=== PATIENT | male | born 1995 | race Caucasian/White ===

== ENCOUNTER 2017-03-30 21:34 | Inpatient (IN) | payer MEDICARE, MEDICAID ==
[2017-03-30] VITALS: BP 122/62
[~2017-03-30] VITALS: Ht 182.9 cm; Wt 163.5 kg
[~2017-03-30 21:34] MED LIST: CELEXA20 MG PO; CEPACOL SORE T1 EAC7 PO; CLONAZEPAM 0.50.5 M1 PO; IBUPROFEN 200200 M1; IBUPROFEN 600600 M1 PO; NOHOMEMEDICATIONS; NORCO 5-325 TA1 EACH PO; RISPERDAL2 MG PO; TRAZODONE HCL50 MG PO; VISTARIL50 MG PO; ZYPREXA15 MG PO
[2017-03-30 21:36] VITALS: BP 142/100
[2017-03-30] MEDS ORDERED: INVEGA SUS39 MG/0.25 (21:44)
[2017-03-30 21:55] LABS: ABSOLUTE EOSINOPHILS 0.1 thou/uL (0.0-0.7); ABSOLUTE LYMPHOCYTES 2.5 thou/uL (0.8-5.3); ABSOLUTE MONOCYTES 0.4 thou/uL (0.0-1.2); ABSOLUTE NEUTROPHILS 4.4 thou/uL (1.6-8.1); BASOPHILS 0.3 %; EOSINOPHILS 0.8 %; HEMATOCRIT 41.8 % (42.0-52.0); HEMOGLOBIN 13.5 gm/dL (14.0-18.0); LYMPHOCYTES 34.2 %; MCH 27.4 pg (26.0-34.0); MCHC 32.3 g/dL (28.0-37.0); MCV 84.8 fL (80.0-100.0); MONOCYTES 5.7 %; MPV 7.4 fl. (7.2-11.1); NUCLEATED RBCS 0 /100WBC; PLATELET COUNT* 253 thou/uL (150-400); RBC 4.93 mil/uL (4.50-6.00); RDW-CV 13.8 % (10.5-14.5); WBC 7.4 thou/uL (4.0-11.0)
[2017-03-30 22:03] LABS: CALCIUM 9.2 mg/dL (8.5-10.1); POTASSIUM 3.3 mmol/L (3.5-5.1)
[2017-03-30 22:08] LABS: URINE BILIRUBIN NEGATIVE (Negative); URINE BLOOD NEGATIVE (Negative); URINE CLARITY CLEAR; URINE COLOR YELLOW; URINE GLUCOSE-RANDOM NEGATIVE (Negative); URINE KETONES NEGATIVE (Negative); URINE LEUKOCYTES-REFLEX NEGATIVE (Negative); URINE NITRITE-REFLEX NEGATIVE (Negative); URINE PROTEIN NEGATIVE (Negative); URINE UROBILINOGEN 0.2 E.U./dl (0.2-1.0)
[2017-03-30 22:14] LABS: ALBUMIN 4.1 g/dL (3.4-5.0); TOTAL BILIRUBIN 0.3 mg/dL (<0.1-1.0); TOTAL PROTEIN 7.6 g/dL (6.4-8.2)
[2017-03-30 22:15] LABS: AMP/METHAMP Negative (Negative); BARBITURATES Negative (Negative); BENZODIAZEPINES Negative (Negative); COCAINE Negative (Negative); METHADONE Negative (Negative); OPIATES Negative (Negative); PCP Negative (Negative); THC Negative (Negative)
[2017-03-30 22:52] VITALS: BP 137/82
[2017-03-30 22:52] LABS: ACETAMINOPHEN < 2 ug/mL (10-30); ALCOHOL < 10 mg/dL (<10); SALICYLATE < 2.8 mg/dL (2.8-20.0)
--- NOTE | 2017-03-30 23:21 | NUR ---
PATIENT ARRIVED ON UNIT AT 2250. ALERT AND ORIENTED TIMES FOUR. PLEASANT. 1:1 SITTER WITH PATIENT. VITAL SIGNS OBTAINED AND NEWS EDITOR COMPLETE. NO COMPLAINTS OF PAIN OR DISCOMFORT NOTED. PATIENT STATES THAT HE LIVES IN A HALF-WAY NORMALLY AND THAT HE DOES FEEL SAFE THERE. INDICATES THAT HE HAS HAD A FLU VACCINE THIS YEAR. COOPERATIVE WITH ASSESSMENT. REQUESTED FOOD. SANDWICH AND SODA PROVIDED IN COMPLIACE WITH DR ORDERS OF REGULAR DIET.
[2017-03-31] VITALS (13 sets, daily range): BP systolic 96–127; BP diastolic 39–80
--- NOTE | 2017-03-31 00:42 | NUR ---
1:1 SITTER ADVISED RN THAT PATIENT WAS "SEIZING". REPORTED TO PATIENT ROOM. PATIENT WAS HAVING UNCONTROLLAVLE MOVEMENT OF BILATERAL LEGS. SPEECH SLURRED, UNABLE TO STATE WHER HE WAS AT. SEIZURE PRECAUTIONS INITIATED. NEW ORDERS RECEIVED FROM NEURO CONSULT OBTAINED FOR AM.
--- NOTE | 2017-03-31 03:31 | NUR ---
PATIENTS BELONGINGS WERE OLACED IN LOCKED CABINET B IN ED.
--- NOTE | 2017-03-31 06:09 | NUR ---
PATIENT REMAINED IN BED ALL SHIFT. HAD 2 EPISODES OF SEIZURE-LIKE ACTIVITY WITH BILATERAL LOWER EXTREMITIES. SEIZURE PRECAUTIONS INITIATED. BLADDER SCAN PER PATIENT UNABLE TO PRODUCE URINE ON OWN. SCAN GREATER THAN 600CC. ARNOLD CATHETER INSERTED. OUTPUT 2500. IVS REMAIN PATENT AT THIS TIME WITH NS INFUSING AT 150ML/HR. VITAL SIGNS HAVE REMAINED STABLE THROUGH SHIFT. NO SEIZURE-LIKE ACTIVITY NOTED AFTER FIRST DOSE OF ATIVAN. SUBSEQUENT DOSES GIVEN FOR INCREASE IN AGITATION. 1: SITTER REMAINS AT BEDSIDE. PATIENT DID SHOW CHANGE IN LEVEL OF CONSCIOUSNESS POST SEIZURE LIKE ACTIVITY INCLUDING SOME SLURRED SPEECH. THIS HAS RESOLVED COMPLETELY AT THIS TIME AND PATIENT IS RESPONDING APPROPRIATELY TO ALL QUESTIONS.
[2017-03-31] MEDS ORDERED: XANAX1 MG PO (07:38)
--- NOTE | 2017-03-31 09:16 | NUR ---
PATIENT CARE ASSUMED AT 0700. VERY ANXIOUS DURING SHIFT CHANGE AND CONTINUES TO BE ANXIOUS AFTER PRN ATIVAN AND XANAX. SEEMS TO BE FORGETFUL. ALLOWED PATIENT TO CALL HIS SISTER THIS AM UNDER NURSE SUPERVISION, RECIEVED HIS MOTHER'S PHONE NUMBER FROM HIS SISTER AND CALLED HER. 20 MINUTES LATER, PATIENT WAS ASKING TO CALL HIS SISTER. HAD TO BE INFORMED HE HAD ALREADY DONE SO. NO SIEZURE LIKE ACTIVITY NOTED THIS AM. HAS BEEN PROVIDED WITH MULTIPLE SNACKS OVERNIGHT, BUT CONTINUES TO CALL OUT FREQUENTLY FOR MORE. REQUIRES LIMIT SETTING. 1:1 SITTER PRESENT.
[2017-03-31 09:56] LABS: CALCIUM 8.3 mg/dL (8.5-10.1); CREATININE 1.1 mg/dL (0.6-1.3); MAGNESIUM 1.5 mg/dL (1.8-2.4); POTASSIUM 4.1 mmol/L (3.5-5.1)
--- NOTE | 2017-03-31 13:07 | NUR ---
PATIENT'S MOTHER RETURNED CALL AFTER MULTIPLE CALLS THIS AM. DID NOT ASK ANY QUESTIONS OF NURSE. ALLOWED PATIENT TO TALK TO MOTHER UNDER SUPERVISION. PATIENT HAS NOT SPOKEN TO MOTHER SINCE PRIOR TO GOING TO [facility] 1 MONTH AGO. SEEMS TO NOT HAVE A GOOD RELATIONSHIP WITH FAMILY. FROM NURSING REPORT, PATIENT IS SUPPOSED TO BE LIVING IN [place], BUT IS UNAWARE OF HIS HOME CARE NURSE NAME OR [place] NAME.
--- NOTE | 2017-03-31 13:43 | EKG ---
[place] [address] ELECTROCARDIOGRAM REPORT Name: CARMEN GARCIA Room: [address] ADM IN M.R.#: [id number] Admission: 03/30/17 Attend Phys: Igor Rodriguez, Discharge: Date of : [birth year] Report #: [id number] THIS REPORT FOR: //name// [facility] ED Test Date: 2017-03-30 Test Time: 21:52:04 Pat Name: CARMEN GARCIA Department: Room: [facility] Gender: M Statistical Programmer: DIVYA : 1995 Requested By: Edil Frausto Order Number: [id number] MD: Solis Reyes Measurements Intervals Bracey Rate: 93 P: 22 WY: 161 QRS: 18 QRSD: 95 T: 19 QT: 355 QTc: 442 Interpretive Statements Sinus rhythm No previous ECG available for comparison Electronically Signed On 03-31-2017 13:43:08 MILITARY EDUCATION COORDINATOR by Solis Reyes [email or web address] <ELECTRONICALLY SIGNED> By: Solis Reyes MD, [facility] 03/31/17 1343 [id number] [id number] Solis Reyes MD, FACC /EPI
--- NOTE | 2017-03-31 18:28 | NUR ---
PATIENT REMAINS MEDICALLY STABLE AT THIS TIME. DOES STILL HAVE POOR JUDGEMENT/SITUATION AWARENESS. DOES STILL REPORT HEARING VOICES/SEEING THINGS AND WANTING TO HARM HIMSELF. NOW TRACING NSR ON SALES AND MARKETING ANALYST. SLEPT THROUGH MOST OF AFTERNOON, DUE TO NOT SLEEPING LAST NIGHT. DENIES IMMEDIATE NEEDS FROM NURSING AT THIS TIME. 1:1 SITTER REMAINS PRESENT.
--- NOTE | 2017-03-31 23:24 | NUR ---
WHILE SITTING 1:1 WITH PATIENT, PATIENT REPORTED HEARING VOICES, STATED"THE VOICES ARE ARGUING AGAIN" QUESTIONED HOW MANY VOICES WHERE THERE AND WHAT ARE THEY ARGUING ABOUT THE PATIENT REPORTED 2 AND THEY ARE ARGUING ABOUT THE DOG AND WHY THERE IS DOG FECES ON THE FLOOR HE STATES " I DON'T EVEN KNOW IF THERE IS A DOG" LORAZAPAM ADMINISTERED TO HELP CALM THE PATIENT NONPHARM INTERVENTIONS INCLUDED REDIRECTION/DISTRACTION BOXED LUNCH PROVIDED AT PATIENT REQUEST WILL CONTINUE TO MONITOR
--- NOTE | 2017-03-31 23:30 | NUR ---
ASSUMED CARE OF PATIENT AT 1900 THE PATIENT REMAINS SR IN THE 90'S ON THE MONITOR O2 SAT MAINTAINED ON RA CONTINUES TO BE UP WITH STANDBY ASSIST LINE CONTROL OF 1 SAFETY INTERVENTIONS CONTINUE BED LOWERED WHEELS LOCKED CALL LIGHT IN REACH SIDE RAILS UP ET PADDED 1:1 SITTER AT BEDSIDE WILL CONTINUE TO MONITOR
[2017-04-01] VITALS (10 sets, daily range): BP systolic 98–156; BP diastolic 52–90
[2017-04-01 04:29] LABS: HEMATOCRIT 37.6 % (42.0-52.0); HEMOGLOBIN 12.1 gm/dL (14.0-18.0); MCH 27.2 pg (26.0-34.0); MCHC 32.1 g/dL (28.0-37.0); MCV 84.7 fL (80.0-100.0); MPV 7.6 fl. (7.2-11.1); RBC 4.44 mil/uL (4.50-6.00); RDW-CV 13.9 % (10.5-14.5); WBC 5.4 thou/uL (4.0-11.0)
[2017-04-01 04:38] LABS: PROTIME 10.2 Seconds (9.20-11.50)
[2017-04-01 05:25] LABS: ALBUMIN 3.2 g/dL (3.4-5.0); CALCIUM 8.3 mg/dL (8.5-10.1); CREATININE 0.9 mg/dL (0.6-1.3); MAGNESIUM 1.8 mg/dL (1.8-2.4); POTASSIUM 4.3 mmol/L (3.5-5.1); TOTAL BILIRUBIN 0.1 mg/dL (<0.1-1.0); TOTAL PROTEIN 5.9 g/dL (6.4-8.2)
--- NOTE | 2017-04-01 06:53 | NUR ---
PATIENT PROGRESSING TOWARDS GOALS PERSONAL ITEMS PLACED IN PATIENT "LOCKER" ER BROUGHT OVER DURING SHIFT CT COMPLETE ORDERED DURING SHIFT RESULTS COMMUNICATED TO WITHOUT FURTHER ORDERS OBTAINED DURING SHIFT PATIENT DESCRIBED HEARING VOICES ORDERS OBTAINED Mimi GUAJARDO DOCUMENTED MEDICATION NOT ADMINISTERED DUE TO PATIENT RESTING WELL BY TIME OBTAINED CONTINUED TO MONITOR WITHOUT FURTHER CONCERN 1:1 CONTINUES SAFETY INTERVENTIONS CONTINUES REPORT GIVEN TO ONCOMING RN
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
--- NOTE | 2017-04-01 10:10 | NUR ---
PATIENT DOWNGRADED TO TELEMETRY STATUS. REPORT GIVEN TO J[place]SE [place]. ALL QUESTIONS ANSWERED. PATIENT TAKEN UP BY RN AND SITTER.
--- NOTE | 2017-04-01 10:25 | NUR ---
PT ADMITTED 03/30 WITH DRUG OVERDOSE, BEING TRANSFERRED FROM ICU TO TELE NOW. PER NURSING STAFF, PT IS WELL KNOWN TO THE E.D. AT [facility] HE IS SEEN THERE OFTEN. PT HAS BEEN KICKED OUT OF SEVERAL GROUP HOMES, HE POSSIBLY IS STAYING WITH DIFFERENT FRIENDS NOW. PT DID GIVE NURSE THE NAME AND PHONE NUMBER OF HIS SENIOR ACCOUNTING ANALYST ALESSANDRO [phone]. CALLED AND LEFT HER A VM ASKING HER TO CALL ME.
--- NOTE | 2017-04-01 10:30 | NUR ---
PT TO ROOM 211 VIA WC ACCOMPANIED BY SITTER. PT CALM AND COOPERATIVE. DENIES SI AT THIS TIME. AWAITING PSYCH EVAL
--- NOTE | 2017-04-01 11:12 | NUR ---
Pt was seen d/t nutrition consult other. Pt was asmitted d/t overdose. Note pt hx of bipolar, schizophrenia. RN unsure of RD consult. RN reports that pt has high BMI of 48.7 and is eating plenty. RN states pt not suitable for any diet education. Chart Reviewed. Low nutrition risk.
--- NOTE | 2017-04-01 23:27 | NUR ---
INITAL ASSESSMENT PT ALERT CALM. SEIZURE PRECAUTIONS IN PLACE. PT WATCHING TV. TELEMETRY SHOWS SR. ALPRAZOLAN GIVEN AT HS. PT SLEPT UNTIL 2300. UP TO BR THEN PT WANTED A SNACK. PT NOW WATCHING TV. WILL CONTINUE 1:1 OBSERVATION.
--- NOTE | 2017-04-02 00:10 | NUR ---
RECEIVED REPORT AND ASSUMED CARE OF PT. SLEEPING AT PRESENT TIME. PT REMAINS ON 1:1 OBSERVATION WITH SEIZURE PRECAUTIONS. TELEMETRY SHOWING SR.
[2017-04-02 04:00] VITALS: BP 100/64
--- NOTE | 2017-04-02 06:30 | NUR ---
SLEPT ALL NIGHT, UP ONLY ONCE TO BR EARLY NIGHT. 1:1 SITTER AT BEDSIDE. TELEMETRY CONT TO SHOW SR. ADVANCING TOWARDS GOALS.
[2017-04-02 08:00] VITALS: BP 122/61
--- NOTE | 2017-04-02 09:00 | NUR ---
SITTER AT BS FOR SAFETY. PT NPO. ASKED PT WHEN LAST IVEGA SHOT WAS AND HE STATES MID FEB.
--- NOTE | 2017-04-02 12:27 | NUR ---
Pt in agreement with going to inpt psych. [facility] does not have bed availability. Faxed referrals to [facility], Pt has been to both of these facilities prior. Awaiting decision to accept.
--- NOTE | 2017-04-02 14:00 | NUR ---
PT ASKING FOR PHONE AND IF HE CAN LEAVE. REINFORCED SI POLICIES-NO PHONE,SITTER AT BS,PT NOT ALLOWED TO LEAVE AMA. PT ASKING WHEN HE IS GOING TO GO TO PSYCH FACILITY. INFORMED PT AWAITIN PSYCH PLACEMENT
--- NOTE | 2017-04-02 15:08 | NUR ---
PT RESTING IN BED THROUGHOUT SHIFT. PT CALM AND COOPERATIVE. PT ASKS FREQUENTLY FOR FOOD,PHONE AND IF HE CAN LEAVE BUT RESPONDS WELL TO LIMIT SETTING. TOLERATING PO WELL WITH GOOD APPETITE. VSS. SITTER REMAINS AT BS FOR SAFETY
[2017-04-02 16:24] VITALS: BP 127/78
[2017-04-02 19:50] VITALS: BP 113/75
--- NOTE | 2017-04-03 00:22 | NUR ---
PT ALERT ORIENTED. PT UP AD DAJUAN IN ROOM. HALDOL GIVEN FOR ANXIETY AT SHIFT CHG. ALPRAZOLAM GIVEN HS. PT SLEEPING. 1:1 FOR SI CONTINUES. MED SURG STATUS. WILL CONTINUE TO MONITOR AND OBSERVE
--- NOTE | 2017-04-03 04:02 | NUR ---
PT CONTINUES TO REST QUIETLY. OCCASIONALLY AWAKES UP.
--- NOTE | 2017-04-03 09:39 | NUR ---
CM contacted several more facilities this morning in search of inpt psych: [facility]-no longer has inpt psych [facility]-at capacity [facility]-left VM, faxed referral f:[phone] [facility]-unable to accept [facility]-only accept [place] residents [facility]-only provides outpt tx [facility]-at capacity [facility]-no male beds [facility] beds [facility]-no beds, may have some later today, faxed referral [facility] beds [place]-unable to accept [facility]- location full, [facility] location unable to accept Pt, d/t Pt's Asperger's dx [facility]-noone answered the phone [facility]-have not reviewed yet [facility]-no beds, will call when they have an opening [facility]-left for bed control CM will continue to look for inpt psych placement
--- NOTE | 2017-04-03 10:35 | NUR ---
Pt discharging to [facility] in [place], [place] for inpt psych. Pt in agreement with POC. Faxed dc orders. Chart copied. Nurse report number provided, . EMTALA form to be completed and copy sent with Pt. Pt will transport via ambulance, anticipate dc around 2pm. Dr Yordy Gipson is the accepting physician. Pt will admit to room 328-1. Left for Pt's sister, Jeff. Updated Pt's community sheet metal worker of disposition.
--- NOTE | 2017-04-03 16:00 | NUR ---
ASSUMED CARE OF PT AT 0730. PT HAS BEEN A&O X4. HE HAS BEEN ANXIOUS AND MULIPULATIVE WITH THE SITTER. HE LOCKED HIMSELF IN THE BATHROOM AT ONE POINT AND WAS LAUGHING THROUGH THE DOOR AT THE SITTER. PT WAS GIVEN PRN HALDOL IV FOR C/O AUDITORY HALLUCINATIONS THAT WERE "TELLING ME TO DRINK MY BLOOD." PT WAS TRANSFERED VIA EMS TO INPATIENT PSYCHATRIC FACILITY. IV REMOVED PRIOR TO DISCHARGE.
--- NOTE | 2017-04-04 11:53 | EEG ---
[address] [address] EEG STUDY REPORT Name: JOSECARMEN BUENO Room: [address] IN M.R.#: [id number] Admission: 03/30/17 Attend Phys: Igor Rodriguez, Discharge: 04/03/17 Date of : [birth year] Report #: [id number] THIS REPORT FOR: //name// CC: JOY physician/PCP Igor Rodriguez DATE OF SERVICE: 04/01/2017 This patient had a seizure and EEG is done to evaluate that. EEG was done by placing the electrodes by standard 10-20 system of electrode placement. Both referential and sequential montages were used for recording. Background activity in this patient's EEG is about 11 Hz and 40 microvolt. The patient became drowsy that is associated with bilateral slowing and vertex sharp waves. Photic stimulation is unremarkable. Throughout the record, no active epileptiform activity was noticed. IMPRESSION: This patient's EEG is within normal limit. Thank you very much for this referral. <ELECTRONICALLY SIGNED> By: Eduin Ren MD 04/04/17 1153 1549 [id number] Ren MD /nt
--- NOTE | 2017-04-04 11:53 | CON ---
[address] [address] CONSULTATION Name: CARMEN GARCIA Room: [address] IN M.R.#: [id number] Admission: 03/30/17 Attend Phys: Igor Rodriguez, Discharge: 04/03/17 Date of : [birth year] Report #: [id number] THIS REPORT FOR: //name// CC: JOY physician/PCP Igor Rodriguez DATE OF SERVICE: 03/31/2017 HISTORY OF PRESENT ILLNESS: This is a 21-year-old male patient who is admitted with a drug overdose. He is not very cooperative because he indicates he wants to go home. I told him that he needs to talk to his primary care about that. He admits to overdose. He says that he has done overdose in the past. He may have some double vision. He said that has happened before. He is not obtunded. He wakes up, but does not cooperate with the history or exam. REVIEW OF SYSTEMS: Mostly from the record. He has a significant psychiatric history. He has overdosed in the past. He has multiple allergies. That is all the 14-point review of system I can get from record or from him. PAST MEDICAL HISTORY: Positive for psychiatric history. FAMILY HISTORY: Negative for early age stroke. SOCIAL HISTORY: He has a history of smoking. PHYSICAL EXAMINATION: Very limited because of his very poor cooperation. He is alert. He is oriented. He can tell me what month it is. He knows the president. Cranial nerve examination 2-12 was attempted. He can move his eyes in multiple directions and I think the movement is intact, but he says he sees double and all the places. He says that it happened with a drug overdose. He moves all four extremities, but does not cooperate with examination. NECK: There is no meningeal sign. There is no carotid bruit. GENERAL: He is a very well-developed individual who does not have any dysmorphic features of eyes, ears and face. Examination is very limited because of his poor cooperation. VITAL SIGNS: His blood pressure is 118/72, respirations 16, pulse is 90, temperature is 98.8. IMAGING: He did not have any imaging study of the brain. LABORATORY DATA: His white count is 7.4 and sodium is normal. IMPRESSION: The patient is admitted with a drug overdose. He wants to go home. RECOMMENDATIONS: We will discuss with the about any Neurology help which may be needed. It looks like the patient's symptoms are [place] [address] CONSULTATION Name: JOSECARMEN Room: [address] IN M.R.#: [id number] Admission: 03/30/17 Attend Phys: Igor Rodriguez, Discharge: 04/03/17 Date of : [birth year] Report #: [id number] overdose. If he ever becomes cooperative, a noncontrast CT of the head can be done to exclude any other pathology. I ordered a TSH and B12, but I am sure it has been checked before. Except for that, I do not have anything specific to add in this patient. Thank you very much for this referral. <ELECTRONICALLY SIGNED> By: Eduin Ren MD 04/04/17 1153 1735 1957Eduin Ren MD /nt
[2017-06-17] MEDS ORDERED: LEXAPRO20 MG PO (23:19)
[2017-06-17] MEDS ORDERED: TRAZODONE HCL50 MG PO (23:23)
[2017-06-17] MEDS ORDERED: PAXIL10 MG (23:24)
[2017-06-19] MEDS ORDERED: RISPERDAL2 MG PO (12:04)
[2017-06-19] MEDS ORDERED: ZYPREXA 5 MG TAB5 MG PO (12:04)
== END 2017-04-03 16:20 | DRG 917 ==
LOC: M.ERS 21:34 → M.TBA-ER 22:20 → M.ICU 22:20 → M.2W 04-01 10:21
PROVIDERS: Emergency Medicine Emergency Medical Services; ADMIT Family Medicine
DX: T48.4X1A Poisoning by expectorants, accidental (unintentional), initial encounter (principal); G92 Toxic encephalopathy; R45.851 Suicidal ideations; T48.3X1A Poisoning by antitussives, accidental (unintentional), initial encounter; F31.9 Bipolar disorder, unspecified; F41.9 Anxiety disorder, unspecified; F17.210 Nicotine dependence, cigarettes, uncomplicated; F25.9 Schizoaffective disorder, unspecified; Z79.899 Other long term (current) drug therapy; Z88.8 Allergy status to other drugs, medicaments and biological substances; Y92.89 Other specified places as the place of occurrence of the external cause

== ENCOUNTER 2017-07-26 16:31 | Emergency (ER) | payer MEDICARE, MEDICAID ==
[~2017-07-26] VITALS: Ht 185.4 cm; Wt 163.3 kg
[~2017-07-26 16:31] MED LIST changes: +INVEGA SUS39 MG/0.25; +LEXAPRO20 MG PO; +PAXIL10 MG; +XANAX1 MG PO; +ZYPREXA 5 MG TAB5 MG PO
[2017-07-26 16:38] VITALS: BP 134/89
[2017-07-26] MEDS ORDERED: BENZTROPINE ME0.5 MG PO (16:41)
[2017-07-26] MEDS ORDERED: INVEGA1.5 MG PO (16:41)
[2017-07-26] MEDS ORDERED: TRAZODONE HCL50 MG PO (16:41)
[2017-07-26] MEDS ORDERED: LEXAPRO 10 MG T10 M2 PO (16:41)
[2017-07-26] MEDS ORDERED: ACTICIN 5% CREA60 G1 TOP (16:45)
[2017-07-26] MEDS ORDERED: PREDNISONE 5 MG5 MG PO (16:45)
[2017-07-26] MEDS ORDERED: KEFLEX500 M1 PO (16:45)
== END 2017-07-26 16:50 | disposition home or self-care (01) ==
LOC: M.ERS 16:31
DX: R21 Rash and other nonspecific skin eruption (principal); L03.114 Cellulitis of left upper limb; F31.9 Bipolar disorder, unspecified; F41.9 Anxiety disorder, unspecified; F25.9 Schizoaffective disorder, unspecified; F17.210 Nicotine dependence, cigarettes, uncomplicated; F12.10 Cannabis abuse, uncomplicated; Z91.5 Personal history of self-harm; Z88.8 Allergy status to other drugs, medicaments and biological substances

== ENCOUNTER 2017-07-30 17:46 | Emergency (ER) | payer MEDICARE, MEDICAID ==
[~2017-07-30] VITALS: Ht 185.4 cm; Wt 167.8 kg
[~2017-07-30 17:46] MED LIST changes: +ACTICIN 5% CREA60 G1 TOP; +BENZTROPINE ME0.5 MG PO; +INVEGA1.5 MG PO; +KEFLEX500 M1 PO; +LEXAPRO 10 MG T10 M2 PO; +PREDNISONE 5 MG5 MG PO
[2017-07-30 18:15] VITALS: BP 154/95
== END 2017-07-30 18:10 | disposition home or self-care (01) ==
LOC: M.ERS 17:46
DX: R20.2 Paresthesia of skin (principal); F31.9 Bipolar disorder, unspecified; F25.9 Schizoaffective disorder, unspecified; F17.210 Nicotine dependence, cigarettes, uncomplicated; Z88.8 Allergy status to other drugs, medicaments and biological substances